=== PATIENT | female | born 1980 | race Two or more races ===

== ENCOUNTER 2023-11-04 02:30 | Emergency (ER) | payer OTHER ==
[~2023-11-04] VITALS: Ht 157.5 cm; Wt 73.9 kg
[2023-11-04 04:34] LABS: HEMATOCRIT 33.9 % (36.0-45.00); HEMOGLOBIN 11.3 g/dL (12.0-15.00); MEAN CELL VOLUME 78.2 fL (80.00-100.00); MEAN CORPUSCULAR HEMOGLOBIN 26.1 pg (27.00-32.0); MEAN CORPUSCULAR HGB CONC 33.4 g/dl (32.0-36.0); PLATELET COUNT 319 K/uL (150-450); RED BLOOD COUNT 4.34 M/uL (4.00-6.00); RED CELL DISTRIBUTION WIDTH 14.7 % (11.5-14.5)
[2023-11-04 04:48] LABS: INR 1.01; PARTIAL THROMBOPLASTIN TIME 26.4 SECONDS (22.0-34.0); PROTHROMBIN TIME 10.6 SECONDS (9.0-11.5)
[2023-11-04 05:13] LABS: ANION GAP 7 (10.0-20.0); BLOOD UREA NITROGEN 16 mg/dL (7-18); BUN CREA RATIO 23 (7.0-25.0); CALCIUM 8.7 mg/dL (8.5-10.1); CARBON DIOXIDE 29 mEq/L (21-32); CHLORIDE 107 mmol/L (98-107); GFR 91.33; GLUCOSE FASTING 99 mg/dL (65-100); OSMOLALITY SERUM 279 MOSM/KG (275-295); POTASSIUM 3.85 mEq/L (3.5-5.1); SODIUM 139 mmol/L (136-145)
[2023-11-04 05:19] LABS: HCG QUANTITATIVE < 1 mUI/mL (1-3)
[2023-11-04] MEDS ORDERED: INTEGRA PLUS C1 EACH PO (08:11)
== END 2023-11-04 08:19 ==
LOC: ER 02:31
PROVIDERS: General Practice
DX: N93.8 Other specified abnormal uterine and vaginal bleeding (principal); Z87.898 Personal history of other specified conditions

== ENCOUNTER 2023-12-31 16:50 | Emergency (ER) | payer OTHER ==
[~2023-12-31] VITALS: Ht 160 cm; Wt 74.4 kg
[~2023-12-31 16:50] MED LIST: INTEGRA PLUS C1 EACH PO
[2023-12-31] MEDS ORDERED: GUAIFENESIN/DEXTROMETHORPHAN 100 MG/5 ML ML PO STA (18:48)
[2023-12-31] MEDS ORDERED: CETIRIZINE HCL 5 MG/5 ML ML PO STA (18:48)
[2023-12-31 19:39] LABS: HEMATOCRIT 35.1 % (36.0-45.00); HEMOGLOBIN 11.5 g/dL (12.0-15.00); MEAN CELL VOLUME 78.7 fL (80.00-100.00); MEAN CORPUSCULAR HEMOGLOBIN 25.7 pg (27.00-32.0); MEAN CORPUSCULAR HGB CONC 32.7 g/dl (32.0-36.0); PLATELET COUNT 323 K/uL (150-450); RED BLOOD COUNT 4.46 M/uL (4.00-6.00); RED CELL DISTRIBUTION WIDTH 14.4 % (11.5-14.5)
[2023-12-31 20:02] LABS: CALCIUM 9.1 mg/dL (8.5-10.1); CREATININE SERUM 0.65 mg/dL (0.55-1.02); GFR 99.48; POTASSIUM 3.86 mEq/L (3.5-5.1)
[2023-12-31] MEDS ORDERED: ZITHROMAX200 MG PO (21:34)
[2023-12-31] MEDS ORDERED: MUCINEX DM ER1 EACH PO (21:34)
[2023-12-31] MEDS ORDERED: SINGULAIR10 MG PO (21:34)
[2023-12-31] MEDS ORDERED: DEXAMETHASONE4 MG PO (21:34)
[2023-12-31] MEDS ORDERED: ZYRTEC10 MG PO (21:34)
== END 2023-12-31 21:44 | disposition home or self-care (01) ==
LOC: ER 16:50
PROVIDERS: General Practice
DX: J06.9 Acute upper respiratory infection, unspecified (principal); Z20.822 Contact with and (suspected) exposure to COVID-19

== ENCOUNTER 2024-09-12 10:54 | Emergency (ER) | payer OTHER ==
[~2024-09-12] VITALS: Ht 160 cm; Wt 72.6 kg
[~2024-09-12 10:54] MED LIST changes: +DEXAMETHASONE4 MG PO; +MUCINEX DM ER1 EACH PO; +SINGULAIR10 MG PO; +ZITHROMAX200 MG PO; +ZYRTEC10 MG PO
[2024-09-12] MEDS ORDERED: CEFTRIAXONE SODIUM 1,000 MG VIAL IM ONE (12:30)
[2024-09-12] MEDS ORDERED: KETOROLAC TROMETHAMINE 60 MG VIAL IM ONE (12:30)
[2024-09-12] MEDS ORDERED: LIDOCAINE HCL 1%/EPINEPHRINE 20ML VIAL IJ ONE (12:30)
[2024-09-12] MEDS ORDERED: PEPCID AC20 MG PO (12:49)
== END 2024-09-12 12:59 | disposition home or self-care (01) ==
LOC: ER 10:56
DX: N75.1 Abscess of Bartholin's gland (principal); N76.4 Abscess of vulva

== ENCOUNTER 2025-01-06 12:04 | Emergency (ER) | payer OTHER ==
[~2025-01-06] VITALS: Ht 157.5 cm; Wt 68.0 kg
[~2025-01-06 12:04] MED LIST changes: +PEPCID AC20 MG PO
[2025-01-06] MEDS ORDERED: KETOROLAC TROMETHAMINE 60 MG VIAL IM STA (13:35)
[2025-01-06] MEDS ORDERED: KETOROLAC TROMETHAMINE 60 MG VIAL IM ONE (13:46)
== END 2025-01-06 16:53 | disposition home or self-care (01) ==
LOC: ER 12:06
DX: S00.83XA Contusion of other part of head, initial encounter (principal); S20.213A Contusion of bilateral front wall of thorax, initial encounter; W10.8XXA Fall (on) (from) other stairs and steps, initial encounter; Y93.89 Activity, other specified; Y92.89 Other specified places as the place of occurrence of the external cause; Y99.9 Unspecified external cause status; J32.9 Chronic sinusitis, unspecified

== ENCOUNTER → 2025-07-27 | Emergency (ER) | payer OTHER ==
[~2025-07-27] VITALS: Ht 157.5 cm; Wt 70.8 kg
[~2025-07-27] MED LIST changes: +AZITHROMYCIN500 MG PO; +BENZONATATE 100 MG CAPSULE PO ONE; +BENZONATATE200 M1 PO; +CEFTRIAXONE SODIUM 1,000 MG VIAL IV ONE; +IPRATROPIUM BROMIDE 0.5 MG/2.5 ML AMPUL.NEB IH SCH; +LEVALBUTER0.63 MG/3 IH; +LEVALBUTEROL HCL 1.25 MG/3 ML SOLUTION IH SCH; +MAGNESIUM SULFATE IN WATER 2 GM/50 ML PIGGYBAG IV ONE; +MEDROLPACK PO; +METHYLPREDNISOLONE SOD SUCC 125 MG VIAL IV ONE
[2025-07-27 14:46] LABS: BASO % 0.3 % (0.1-1.2); EOS # 0.17 (0.04-0.54); EOS % 1.8 % (0.7-7.0); LYMPH # 1.35 (1.18-3.74); LYMPH % 14.5 % (19.3-53.1); MEAN PLATELET VOLUME 9.10 fl (9.4-12.4); MONO # 0.91 (0.24-0.82); MONO % 9.8 % (4.7-12.5); NEUT # 6.82 (1.56-6.13); NEUT % 73.3 % (34.0-71.1); RED CELL DISTRIBUTION WIDTH 13.3 % (11.6-14.4)
[2025-07-27 15:04] LABS: INR 1.0
[2025-07-27 15:06] LABS: COVID-19 AG NEGATIVE (NEGATIVE)
[2025-07-27 15:11] LABS: ALT/SGPT 26.0 U/L (12-78); AST/SGOT 16.0 U/L (15-37); BILIRUBIN TOTAL 0.71 mg/dL (0.3-1.2); BUN CREA RATIO 16.0 (7.0-25.0); CREATININE SERUM 0.68 mg/dL (0.55-1.02); GFR 93.57; GLOBULINA 4.0 G/DL (2.4-3.5); GLUCOSE FASTING 94.0 mg/dL (65-100); OSMOLALITY SERUM 284.0 MOSM/KG (275-295)
[2025-07-27 15:34] LABS: ABG PH 7.461 (7.35-7.45); ABG PO2 85.9 mmHg (80-100); BICARBONATE 25.3 mmol/l (23-25)
[2025-07-27 15:35] LABS: o2 21 %
== END | disposition home or self-care (01) ==
LOC: ER 12:57
PROVIDERS: General Practice
DX: J45.901 Unspecified asthma with (acute) exacerbation (principal); J45.909 Unspecified asthma, uncomplicated; R06.02 Shortness of breath; Z20.822 Contact with and (suspected) exposure to COVID-19

== ENCOUNTER 2025-10-04 12:59 | Emergency (ER) | payer OTHER ==
[~2025-10-04] VITALS: Ht 160 cm; Wt 71.7 kg
[~2025-10-04 12:59] MED LIST changes: -BENZONATATE 100 MG CAPSULE PO ONE; -CEFTRIAXONE SODIUM 1,000 MG VIAL IV ONE; -IPRATROPIUM BROMIDE 0.5 MG/2.5 ML AMPUL.NEB IH SCH; -LEVALBUTEROL HCL 1.25 MG/3 ML SOLUTION IH SCH; -MAGNESIUM SULFATE IN WATER 2 GM/50 ML PIGGYBAG IV ONE; -METHYLPREDNISOLONE SOD SUCC 125 MG VIAL IV ONE
[2025-10-04] MEDS ORDERED: CEFTRIAXONE SODIUM 1,000 MG VIAL IV ONE (14:45)
[2025-10-04] MEDS ORDERED: DEXAMETHASONE SODIUM PHOSPHATE 4 MG/ML VIAL IV ONE (14:45)
[2025-10-04] MEDS ORDERED: ENALAPRILAT DIHYDRATE 1.25 MG/ML VIAL IV ONE (14:45)
[2025-10-04] MEDS ORDERED: 0.9 % SODIUM CHLORIDE 1,000 ML IV ONE (14:45)
[2025-10-04 16:55] LABS: BASO % 0.4 % (0.1-1.2); EOS # 0.35 (0.04-0.54); EOS % 3.8 % (0.7-7.0); LYMPH # 2.19 (1.18-3.74); LYMPH % 23.8 % (19.3-53.1); MEAN PLATELET VOLUME 9.50 fl (9.4-12.4); MONO # 0.64 (0.24-0.82); MONO % 7.0 % (4.7-12.5); NEUT # 5.96 (1.56-6.13); NEUT % 64.8 % (34.0-71.1); RED CELL DISTRIBUTION WIDTH 14.0 % (11.6-14.4)
[2025-10-04 16:58] LABS: URINE APPEARANCE Clear; URINE BILIRRUBIN Negative (NEGATIVE); URINE BLOOD Small; URINE COLOR Yellow; URINE GLUCOSE Negative (NEGATIVE); URINE KETONE Negative (NEGATIVE); URINE LEUKOCYTE Moderate; URINE NITRATE Negative; URINE PROTEIN Negative (NEGATIVE); URINE UROBILINOGEN 1.0 E.U./dl
[2025-10-04 16:59] LABS: ERYTHROCYTE SEDIMENTATION RATE 28 mm/hr (0-20)
[2025-10-04 17:02] LABS: URINE BACTERIA 1005.5 uL (0.0-1933); URINE EPITHELIAL CELLS 38.7 uL (0.0-38.8); URINE RBC 25.8 uL (0.0-20.8); URINE WBC 78.7 uL (0.0-23.2)
[2025-10-04 17:07] LABS: URINE CAST 0.00 uL (0.0-1.40)
[2025-10-04 17:07] LABS: COVID-19 AG NEGATIVE (NEGATIVE)
[2025-10-04 17:25] LABS: ALT/SGPT 30.0 U/L (12-78); AST/SGOT 16.0 U/L (15-37); BILIRUBIN TOTAL 0.58 mg/dL (0.3-1.2); BUN CREA RATIO 29.0 (7.0-25.0); CREATININE SERUM 0.7 mg/dL (0.55-1.02); GFR 90.49; GLOBULINA 3.6 G/DL (2.4-3.5); GLUCOSE FASTING 103.0 mg/dL (65-100); OSMOLALITY SERUM 286.0 MOSM/KG (275-295)
[2025-10-04] MEDS ORDERED: AMOX-CLAV 875-1 EAC1 PO (21:28)
== END 2025-10-04 22:53 | disposition home or self-care (01) ==
LOC: ER 13:00
DX: R60.0 Localized edema (principal); J32.0 Chronic maxillary sinusitis; Z20.822 Contact with and (suspected) exposure to COVID-19